=== PATIENT | male | born 1985 | race Caucasian/White ===

== ENCOUNTER 2017-04-07 21:03 | Emergency (ER) | payer SELFPAY ==
--- NOTE | 2017-04-08 02:04 | ER Document Report ---
HPI - HPI Patient complains to provider of: sore throat, cough Onset: Yesterday Onset/Duration: Gradual Quality of pain: Achy Pain Level: 3 Context: 32 yo male with sore throat, cough, congestion since yesterday evening. No fever or chills. No chest pain or sob. Associated Symptoms: None Exacerbated by: Denies Relieved by: Denies - ROS ROS below otherwise negative: Yes Systems Reviewed and Negative: Yes All other systems reviewed and negative - REPRODUCTIVE Reproductive: DENIES: : - DERM Skin Color: Normal Past Medical History - General Information source: Patient - Social History Smoking Status: Unknown if Ever Smoked Frequency of alcohol use: None Drug Abuse: None Lives with: Family Family History: Reviewed & Not Pertinent - Medical History Medical History: Negative Renal/ Medical History: Denies: Hx Peritoneal Dialysis Musculoskeltal Medical History: Denies Hx Arthritis Surgical Hx: Negative Past Surgical History: Reports: Hx Orthopedic Surgery - Immunizations Hx Diphtheria, Pertussis, Tetanus Vaccination: Yes Vertical Provider Document - CONSTITUTIONAL Agree With Documented VS: Yes Exam Limitations: No Limitations General Appearance: No Apparent Distress - INFECTION CONTROL TRAVEL OUTSIDE OF THE [place] IN LAST 30 DAYS: No - HEENT HEENT: Normocephalic, Pharyngeal Erythema - milgd. negative: Tympanic Membrane Red, Tympanic Membrane Bulging - NECK Neck: Supple. negative: Lymphadenopathy-Left, Lymphadenopathy-Right - RESPIRATORY Respiratory: Breath Sounds Normal, No Respiratory Distress O2 Sat by Pulse Oximetry: 99 - CARDIOVASCULAR Cardiovascular: Regular Rate, Regular Rhythm - GI/ABDOMEN Gastrointestinal: Abdomen Soft, Abdomen Non-Tender - MUSCULOSKELETAL/EXTREMETIES Musculoskeletal/Extremeties: MAEW, [place] - NEURO Level of Consciousness: Awake, Alert - DERM Integumentary: Warm, Dry, No Rash Course - Re-evaluation Re-evalutation: 04/08/17 02:29 rapid strept negative - Vital Signs Vital signs: Temp Pulse Resp BP Pulse Ox 98.1 F 92 18 117/64 99 04/07/17 22:10 04/07/17 22:10 04/07/17 22:10 04/07/17 22:10 04/07/17 22:10 Discharge - Discharge Clinical Impression: Viral upper respiratory infection Condition: Good Disposition: HOME, SELF-CARE Instructions: Sore Throat ([facility]), Upper Respiratory Illness ([facility]) Additional Instructions: plenty of fluids stop smoking tylenol for discomfort to er if worse
[2017-04-08 02:55] VITALS: BP 110/69
== END 2017-04-08 02:50 | disposition home or self-care (01) ==
LOC: ER 21:03
DX: J06.9 Acute upper respiratory infection, unspecified (principal); J02.9 Acute pharyngitis, unspecified; R05 Cough; R09.81 Nasal congestion
CPT/HCPCS: 87070; 87880; 99283

== ENCOUNTER 2019-07-31 15:44 | Emergency (ER) | payer OTHER ==
--- NOTE | 2019-07-31 15:52 | ER Document Report ---
ED Medical Screen (RME) - General Stated Complaint: ALTERED MENTAL STATUS Time Seen by Provider: 07/31/19 15:49 Mode of Arrival: Medic Information source: Law Enforcement, Emergency Med Personnel Notes: This 34-year-old male presents from [facility] with complaints of headache. Reports last used heroin 3 days ago. Reports history of substance abuse with heroin and meth. Has not been prescribed anything since he has been at the snf for 3 days.. Is going through withdrawals. No complaints of nausea vomiting. I have greeted and performed a rapid initial assessment of this patient. A comprehensive ED assessment and evaluation of the patient, analysis of test results and completion of the medical decision making process will be conducted by additional ED providers. Dictation of this chart was performed using voice recognition software; therefore, there may be some unintended grammatical errors. TRAVEL OUTSIDE OF THE [place] IN LAST 30 DAYS: No - Related Data Allergies/Adverse Reactions: No Known Allergies Allergy (Verified 07/31/19 15:51) Past Medical History - Past Medical History Cardiac Medical History: Denies: Hx Coronary Artery Disease, Hx Heart Attack, Hx Hypertension Pulmonary Medical History: Denies: Hx Asthma, Hx Bronchitis, Hx COPD, Hx Pneumonia Neurological Medical History: Denies: Hx Cerebrovascular Accident, Hx Seizures Endocrine Medical History: Denies: Hx Diabetes Mellitus Type 1, Hx Diabetes Mellitus Type 2 Renal/ Medical History: Denies: Hx Peritoneal Dialysis Musculoskeltal Medical History: Denies Hx Arthritis Past Surgical History: Reports: Hx Orthopedic Surgery - Immunizations Hx Diphtheria, Pertussis, Tetanus Vaccination: Yes
[2019-07-31] MEDS ORDERED: KETOROLAC TROMETHAMINE INJ/PF 30 MG/1 ML SDV IV ONE (15:59)
[2019-07-31] MEDS ORDERED: DIPHENHYDRAMINE HCL 50 MG/ML VIAL IV ONE (15:59)
[2019-07-31] MEDS ORDERED: ONDANSETRON HCL INJ/PF 4 MG/2 ML SDV IV ONE (15:59)
[2019-07-31] MEDS ORDERED: NORMAL SALINE 1000 ML 1,000 ML IV ONE (15:59)
[2019-07-31] MEDS ORDERED: PROCHLORPERAZINE EDISYLATE INJ 10 MG/2 ML VIAL IV ONE (16:17)
--- NOTE | 2019-07-31 16:20 | ER Document Report ---
ED General - General Chief Complaint: Altered Mental Status Stated Complaint: ALTERED MENTAL STATUS Time Seen by Provider: 07/31/19 15:49 Mode of Arrival: Medic TRAVEL OUTSIDE OF THE [place] IN LAST 30 DAYS: No - HPI Notes: Presents from nursing home for concern of seizure activity. He states that he awoke in the [place] was holding him and they state he was having rhythmic jerking motions. He does not have any history of seizure disorder and no known medical problems. He does have a history of meth and heroin use and his last use was on the . He states he has a slight headache denies any vision changes at this time no pain in any parts of his body. Does note makes a comment of patient was sent here for withdrawal but he has stable vitals at this time he is not tremulous and is well-appearing - Related Data Allergies/Adverse Reactions: No Known Allergies Allergy (Verified 07/31/19 15:51) Past Medical History - General Information source: Law Enforcement, Emergency Med Personnel - Social History Smoking Status: Never Smoker Chew tobacco use (# tins/day): No Frequency of alcohol use: None Drug Abuse: Heroin, Methamphetamine Family History: Reviewed & Not Pertinent Patient has suicidal ideation: No Patient has homicidal ideation: No - Past Medical History Cardiac Medical History: Denies: Hx Coronary Artery Disease, Hx Heart Attack, Hx Hypertension Pulmonary Medical History: Denies: Hx Asthma, Hx Bronchitis, Hx COPD, Hx Pneumonia Neurological Medical History: Denies: Hx Cerebrovascular Accident, Hx Seizures Endocrine Medical History: Denies: Hx Diabetes Mellitus Type 1, Hx Diabetes Mellitus Type 2 Renal/ Medical History: Denies: Hx Peritoneal Dialysis Musculoskeletal Medical History: Denies Hx Arthritis Past Surgical History: Reports: Hx Orthopedic Surgery - Immunizations Hx Diphtheria, Pertussis, Tetanus Vaccination: Yes Review of Systems - Review of Systems Constitutional: No symptoms reported EENT: No symptoms reported Cardiovascular: No symptoms reported Respiratory: No symptoms reported Gastrointestinal: No symptoms reported Genitourinary: No symptoms reported Male Genitourinary: No symptoms reported Musculoskeletal: No symptoms reported Skin: No symptoms reported Hematologic/Lymphatic: No symptoms reported Neurological/Psychological: See HPI Physical Exam - Vital signs Vitals: Resp Pulse Ox 15 100 07/31/19 16:04 07/31/19 16:04 - General General appearance: Appears well, Alert - HEENT Head: Normocephalic, Atraumatic Eyes: Normal Pupils: PERRL - Respiratory Respiratory status: No respiratory distress Chest status: Nontender Breath sounds: Normal Chest palpation: Normal - Cardiovascular Rhythm: Regular Heart sounds: Normal auscultation Murmur: No - Extremities General upper extremity: Normal inspection, Nontender, Normal color, Normal ROM, Normal temperature General lower extremity: Normal inspection, Nontender, Normal color, Normal ROM, Normal temperature, Normal weight bearing. No: Shakila's sign - Neurological Neuro grossly intact: Yes Cognition: Normal Orientation: AAOx4 [place] Coma Scale Eye Opening: Spontaneous Lm Coma Scale Verbal: Oriented [place] Coma Scale Motor: Obeys Commands [place] Coma Scale Total: 15 Speech: Normal Motor strength normal: LUE, RUE, LLE, RLE Sensory: Normal - Psychological Associated symptoms: Normal affect Course - Re-evaluation Re-evalutation: 07/31/19 18:11 Labs within normal limits are nonsignificant with no concerning findings on imaging. Patient is not postictal and is had any seizure activity in the emergency department. Will be discharged at this time. Instructed on paperwork if her to have repeat seizure activity the knee need further evaluation by neurology and consideration of antiepileptics. - Vital Signs Vital signs: Temp Pulse Resp BP Pulse Ox 98.7 F 14 118/78 100 07/31/19 16:05 07/31/19 17:01 07/31/19 17:01 07/31/19 16:05 - Laboratory Result Diagrams: 07/31/19 16:38 07/31/19 16:38 Laboratory results interpreted by me: 07/31/19 07/31/19 16:38 16:38 WBC 12.6 H RBC 6.69 H Hgb 17.7 H Hct 52.8 H MCV 79 L MCH 26.4 L Absolute Neuts (auto) 8.8 H Calcium 10.7 H Magnesium 2.4 H Total Protein 10.2 H - Diagnostic Test Radiology reviewed: Reports reviewed - EKG Interpretation by Me EKG shows normal: Sinus rhythm Rate: Normal Rhythm: NSR Discharge - Discharge Clinical Impression: Seizure-like activity Condition: Good Disposition: HOME, SELF-CARE Instructions: New Seizure ([facility]) Additional Instructions: Here to have another seizure please seek neurology evaluation consideration for antiepileptic medications.
[2019-07-31 16:54] LABS: ABSOLUTE BASOPHILS # (AUTO) 0.1 10^3/uL (0.0-0.2); ABSOLUTE LYMPHOCYTES (AUTO) 2.9 10^3/uL (0.5-4.7); ABSOLUTE MONOCYTES (AUTO) 0.8 10^3/uL (0.1-1.4); ABSOLUTE NEUT (AUTO) 8.8 10^3/uL (1.7-8.2); BASOPHILS % (AUTO) 0.5 % (0-2); EOSINOPHILS % (AUTO) 0.4 % (0-6); HEMATOCRIT 52.8 % (37.9-51.0); HEMOGLOBIN 17.7 g/dL (13.5-17.0); LYMPHOCYTES % (AUTO) 22.7 % (13-45); MEAN CORPUSCULAR HEMOGLOBIN 26.4 pg (27.0-33.4); MEAN CORPUSCULAR HGB CONC 33.4 g/dL (32.0-36.0); MEAN CORPUSCULAR VOLUME 79 fl (80-97); MONOCYTES % (AUTO) 6.6 % (3-13); PLATELET COUNT 376 10^3/uL (150-450); RED BLOOD COUNT 6.69 10^6/uL (4.35-5.55); RED CELL DISTRIBUTION WIDTH 13.8 % (11.5-14.0); SEGMENTED NEUTROPHILS % (AUTO) 69.8 % (42-78); TOTAL CELLS COUNTED % (AUTO) 100 %; WHITE BLOOD COUNT 12.6 10^3/uL (4.0-10.5)
--- NOTE | 2019-07-31 16:55 | RADIOLOGY REPORT (SQ) ---
EXAM DESCRIPTION: CHEST SINGLE VIEW COMPLETED DATE/TIME: 07/31/2019 4:36 pm REASON FOR STUDY: seizure r/o aspiration COMPARISON: Two-view chest 07/19/2011 EXAM PARAMETERS: NUMBER OF VIEWS: One view. TECHNIQUE: Single frontal radiographic view of the chest acquired. RADIATION DOSE: NA LIMITATIONS: None. FINDINGS: LUNGS AND PLEURA: No acute infiltrates. No pleural effusion or pneumothorax. MEDIASTINUM AND HILAR STRUCTURES: No masses. Contour normal. HEART AND VASCULAR STRUCTURES: Heart normal in size. Normal vasculature. BONES: No acute findings. HARDWARE: Left lateral old rib fractures OTHER: No other significant finding. IMPRESSION: NO ACUTE RADIOGRAPHIC FINDING IN THE CHEST. TECHNICAL DOCUMENTATION: JOB ID: [id number] [employer]- All Rights Reserved Reading location - IP/workstation name: [email or web address]
--- NOTE | 2019-07-31 17:09 | RADIOLOGY REPORT (SQ) ---
EXAM DESCRIPTION: CT HEAD WITHOUT COMPLETED DATE/TIME: 07/31/2019 4:57 pm REASON FOR STUDY: first time seziure COMPARISON: 2015 TECHNIQUE: Axial images acquired through the brain without intravenous contrast. Images reviewed wi th bone, brain and subdural windows. Additional sagittal and coronal reconstructions were generated. Images stored on PACS. All CT scanners at this facility use dose modulation, iterative reconstruction, and/or weight based d osing when appropriate to reduce radiation dose to as low as reasonably achievable (ALARA). [facility]: Dose Right [facility]: CareDose [facility]: Dose Right [facility]: Teradose 4D [facility]: Smart Bringrr RADIATION DOSE: CT Rad equipment meets quality standard of care and radiation dose reduction techniq ues were employed. CTDIvol: 53.2 mGy. DLP: 1017 mGy-cm. mGy. LIMITATIONS: None. FINDINGS: VENTRICLES: Normal size and contour. CEREBRUM: No masses. No hemorrhage. No midline shift. No evidence for acute infarction. Normal gra y/white matter differentiation. No areas of low density in the white matter. CEREBELLUM: No masses. No hemorrhage. No alteration of density. No evidence for acute infarction. EXTRAAXIAL SPACES: No fluid collections. No masses. ORBITS AND GLOBE: No intra- or extraconal masses. Normal contour of globe without masses. CALVARIUM: No fracture. PARANASAL SINUSES: No fluid levels. SOFT TISSUES: No mass or hematoma. OTHER: No other significant finding. IMPRESSION: No acute intracranial abnormality. EVIDENCE OF ACUTE STROKE: NO. COMMENT: Quality ID # [id number]: Final reports with documentation of one or more dose reduction techniques (e.g., Automated exposure control, adjustment of the mA and/or kV according to patient size, use of iterative reconstruction technique) TECHNICAL DOCUMENTATION: JOB ID: [id number] [email or web address]- All Rights Reserved Reading location - IP/workstation name: [email or web address]
[2019-07-31 17:23] LABS: ALKALINE PHOSPHATASE 103 U/L (38-126); ANION GAP 16 (5-19); ASPARTATE AMINO TRANSFERASE 36 U/L (17-59); BILIRUBIN,DIRECT 0.2 mg/dL (0.0-0.4); BILIRUBIN,TOTAL 0.6 mg/dL (0.2-1.3); BLOOD UREA NITROGEN 15 mg/dL (7-20); CALCIUM 10.7 mg/dL (8.4-10.2); CARBON DIOXIDE 24 mmol/L (22-30); CHLORIDE 102 mmol/L (98-107); GLUCOSE 84 mg/dL (75-110); POTASSIUM 4.2 mmol/L (3.6-5.0); TOTAL PROTEIN 10.2 g/dL (6.3-8.2)
[2019-07-31 19:23] VITALS: BP 109/69
--- NOTE | 2019-08-02 09:11 | EKG REPORT ---
SEVERITY:- BORDERLINE ECG - SINUS RHYTHM CONSIDER ANTERIOR INFARCT : Confirmed by: Paola Johnson 02-Aug-2019 09:10:38
== END 2019-07-31 19:28 | disposition home or self-care (01) ==
LOC: ER 15:44
DX: R29.818 Other symptoms and signs involving the nervous system (principal); R51 Headache; F11.10 Opioid abuse, uncomplicated; F15.10 Other stimulant abuse, uncomplicated
CPT/HCPCS: 93005; 99285; 96361; 96374; 96375; 36415; 83735; 85025; 80053; 71045; 70450; 93010; J1200; J0780; J2405; J7030

== ENCOUNTER 2020-07-03 22:51 | Emergency (ER) | payer SELFPAY ==
--- NOTE | 2020-07-03 23:42 | ER Document Report ---
ED Medical Screen (RME) - General Chief Complaint: Skin Sore(s) Stated Complaint: POSSIBLE BUG BITE RIGHT EYE AREA Time Seen by Provider: 07/03/20 23:35 Mode of Arrival: Ambulatory Information source: Patient Notes: 35-year-old male presented to ED for complaint of severe facial cellulitis that started yesterday. He cannot open his right eye. He is alert oriented respirations regular nonlabored speaking in full sentences. States the pain is a level 4 in his face. He is alert oriented respirations regular nonlabored speaking in full sentences. We will get blood blood cultures IV contrasted CT of the face and have him seen by another provider. I have greeted and performed a rapid initial assessment of this patient. A comprehensive ED assessment and evaluation of the patient, analysis of test results and completion of medical decision making process will be conducted by an additional ED providers. TRAVEL OUTSIDE OF THE [place] IN LAST 30 DAYS: No - Related Data Allergies/Adverse Reactions: No Known Allergies Allergy (Verified 07/31/19 15:51) Past Medical History - Past Medical History Cardiac Medical History: Denies: Hx Coronary Artery Disease, Hx Heart Attack, Hx Hypertension Pulmonary Medical History: Denies: Hx Asthma, Hx Bronchitis, Hx COPD, Hx Pneumonia Neurological Medical History: Denies: Hx Cerebrovascular Accident, Hx Seizures Endocrine Medical History: Denies: Hx Diabetes Mellitus Type 1, Hx Diabetes Mellitus Type 2 Renal/ Medical History: Denies: Hx Peritoneal Dialysis Musculoskeltal Medical History: Denies Hx Arthritis Past Surgical History: Reports: Hx Orthopedic Surgery - Immunizations Hx Diphtheria, Pertussis, Tetanus Vaccination: Yes Physical Exam - Vital signs Vitals: Temp Pulse Resp BP Pulse Ox 98.1 F 84 16 137/68 H 98 07/03/20 22:56 07/03/20 22:56 07/03/20 22:56 07/03/20 22:56 07/03/20 22:56 Course - Vital Signs Vital signs: Temp Pulse Resp BP Pulse Ox 98.1 F 84 16 137/68 H 98 07/03/20 22:56 07/03/20 22:56 07/03/20 22:56 07/03/20 22:56 07/03/20 22:56
[2020-07-04 00:12] LABS: ABSOLUTE BASOPHILS # (AUTO) 0.1 10^3/uL (0.0-0.2); ABSOLUTE EOSINOPHILS # (AUTO) 0.2 10^3/uL (0.0-0.6); ABSOLUTE MONOCYTES (AUTO) 0.8 10^3/uL (0.1-1.4); ABSOLUTE NEUT (AUTO) 7.2 10^3/uL (1.7-8.2); BASOPHILS % (AUTO) 0.5 % (0-2); EOSINOPHILS % (AUTO) 2.2 % (0-6); HEMOGLOBIN 13.6 g/dL (13.5-17.0); LYMPHOCYTES % (AUTO) 19.3 % (13-45); MEAN CORPUSCULAR HEMOGLOBIN 27.2 pg (27.0-33.4); MEAN CORPUSCULAR HGB CONC 33.9 g/dL (32.0-36.0); MEAN CORPUSCULAR VOLUME 80 fl (80-97); MONOCYTES % (AUTO) 7.7 % (3-13); PLATELET COUNT 251 10^3/uL (150-450); RED BLOOD COUNT 4.99 10^6/uL (4.35-5.55); RED CELL DISTRIBUTION WIDTH 13.5 % (11.5-14.0); SEGMENTED NEUTROPHILS % (AUTO) 70.3 % (42-78); TOTAL CELLS COUNTED % (AUTO) 100 %; WHITE BLOOD COUNT 10.2 10^3/uL (4.0-10.5)
[2020-07-04 01:28] LABS: ALBUMIN 3.7 g/dL (3.5-5.0); ALKALINE PHOSPHATASE 78 U/L (38-126); ANION GAP 10 (5-19); ASPARTATE AMINO TRANSFERASE 20 U/L (17-59); BILIRUBIN,DIRECT 0.2 mg/dL (0.0-0.4); BILIRUBIN,TOTAL 0.4 mg/dL (0.2-1.3); BLOOD UREA NITROGEN 18 mg/dL (7-20); CALCIUM 9.1 mg/dL (8.4-10.2); CARBON DIOXIDE 27 mmol/L (22-30); CHLORIDE 102 mmol/L (98-107); GLUCOSE 108 mg/dL (75-110); POTASSIUM 4.2 mmol/L (3.6-5.0); TOTAL PROTEIN 6.8 g/dL (6.3-8.2)
[2020-07-04] MEDS ORDERED: CLINDAMYCIN 900 MG/D5W RTU 900 MG/50 ML RTUPB IV ONE (02:13)
[2020-07-04] MEDS ORDERED: DEXAMETHASONE SOD PHOSPHATE INJ 4 MG/1 ML VIAL IV ONE (02:14)
--- NOTE | 2020-07-04 02:17 | ER Document Report ---
ED Skin Rash/Insect Bite/Abscs - General Chief Complaint: Skin Problem Stated Complaint: POSSIBLE BUG BITE RIGHT EYE AREA Time Seen by Provider: 07/03/20 23:35 Mode of Arrival: Ambulatory Information source: Patient Notes: Patient is a 35-year-old male comes emergency room complaining of infection to his bridge of the nose spreading down into the right eye upper and lower lid area. And has some extension into the left lower lid area. Patient states it was approximately 2 days ago when he noticed in the middle of the forehead just above the bridge of the nose that he had been bitten or had a pimple in the area. He attempted to squeeze it and by the time he woke up yesterday morning t he area had spread and the eyelids and upper and lower puff down closing his eyes so he could not see through it. He is got moderate amount of erythema going across the forehead and into the left lower lid. TRAVEL OUTSIDE OF THE [place] IN LAST 30 DAYS: No - HPI Patient complains to provider of: Tender/swollen area, Insect bite Onset: Other Onset/Duration: Gradual, Persistent, Worse Quality of pain: Achy, Pressure, Throbbing Severity: Moderate Pain Level: 3 Skin Character: Drainage, Erythema, Swelling, Tenderness, Thickening Skin Temperature: Warm Quality of rash: Painful Identify cause: No Other exposure: Other - Insect bite Relieved by: Denies Similar symptoms previously: No Recently seen / treated by doctor: No - Related Data Allergies/Adverse Reactions: No Known Allergies Allergy (Verified 07/04/20 00:17) Past Medical History - General Information source: Patient - Social History Smoking Status: Current Some Day Smoker Cigarette use (# per day): Yes Chew tobacco use (# tins/day): No Smoking Education Provided: Yes Frequency of alcohol use: None Drug Abuse: None Lives with: Family Family History: Reviewed & Not Pertinent Patient has homicidal ideation: No - Past Medical History Cardiac Medical History: Denies: Hx Coronary Artery Disease, Hx Heart Attack, Hx Hypertension Pulmonary Medical History: Denies: Hx Asthma, Hx Bronchitis, Hx COPD, Hx Pneumonia Neurological Medical History: Denies: Hx Cerebrovascular Accident, Hx Seizures Endocrine Medical History: Denies: Hx Diabetes Mellitus Type 1, Hx Diabetes Mellitus Type 2 Renal/ Medical History: Denies: Hx Peritoneal Dialysis Musculoskeletal Medical History: Denies Hx Arthritis Past Surgical History: Reports: Hx Orthopedic Surgery - Immunizations Hx Diphtheria, Pertussis, Tetanus Vaccination: Yes Review of Systems - Review of Systems Constitutional: No symptoms reported EENT: No symptoms reported Cardiovascular: No symptoms reported Respiratory: No symptoms reported Gastrointestinal: No symptoms reported Genitourinary: No symptoms reported Male Genitourinary: No symptoms reported Musculoskeletal: No symptoms reported Skin: See HPI, Lesions Hematologic/Lymphatic: No symptoms reported Neurological/Psychological: No symptoms reported -: Yes All other systems reviewed and negative Physical Exam - Vital signs Vitals: Temp Pulse Resp BP Pulse Ox 98.1 F 84 16 137/68 H 98 07/03/20 22:56 07/03/20 22:56 07/03/20 22:56 07/03/20 22:56 07/03/20 22:56 Interpretation: Hypertensive Notes: PHYSICAL EXAMINATION: GENERAL: Patient is well-nourished well-developed 35-year-old male no acute distress on physical exam today. Patient does appear somewhat uncomfortable. HEAD: , normocephalic. Examination patient her concern is his frontal forehead primarily at the superior portion of the bridge of the nose extending down onto the midportion of the bridge of the nose into the lower eye and upper eyelid. The eye itself is not infected. When prying open the lower and upper lids from its puffiness patient is full visual acuity. He also has good EOMs. No sign of any damage to the orbits themselves. Further evaluation of the eyelid shown to be puffy moderate erythema there is no fluctuance noted in the area of the eyelids. There is mild fluctuance where the lesion is located at the superior portion of the bridge of the nose slightly off to the right side there is a 1 cm x 1cm lesion that is tender to palpate is oozing slightly when pressure is applied to the sides just a minimal amount of a clearish fluid. There is some extension of the erythema down into the left lower lid. Again there is no involvement of the eye itself. EYES: Pupils equal round and reactive to light, extraocular movements intact, sclera anicteric, conjunctiva are normal. ENT: Nares patent, oropharynx clear without exudates. Moist mucous membranes. NECK: Normal range of motion, supple without lymphadenopathy LUNGS: Breath sounds clear to auscultation bilaterally and equal. No wheezes rales or rhonchi. HEART: Regular rate and rhythm without murmurs NEUROLOGICAL: Normal speech, normal gait. Normal sensory, motor exams PSYCH: Normal mood, normal affect. SKIN: See head above for full details. The entire area covers approximately 10 cm across the upper lids down to the lateral canthus of the eye and across the bridge of the nose. This is approximately 10 to 14 cm across and approximately 6 cm total wide. Course - Re-evaluation Re-evalutation: 07/04/20 05:58 Patient received clindamycin 900 mg IV while here along with 8 of Decadron his swelling has subsided substantially his vision is slightly better and opening his eyes improved. The erythema seems to decrease moderately to. He does state he is feeling better. At this time I will send him home on clindamycin and Keflex. 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 I have instructed him to return to ER should he have any difficulty with managing his fevers increased swelling or any concerns. 07/04/20 05:59 There was no area of incision and drainage to be had on this cellulitis presentation. The draining portion of it is just a very minimal superficial type of a collection. - Vital Signs Vital signs: Temp Pulse Resp BP Pulse Ox 98.1 F 84 16 137/68 H 98 07/03/20 23:59 07/03/20 22:56 07/03/20 22:56 07/03/20 22:56 07/03/20 22:56 - Laboratory Result Diagrams: 07/03/20 23:59 07/03/20 23:59 Discharge - Discharge Clinical Impression: Facial cellulitis Insect bite Qualifiers: Encounter type: initial encounter Site of insect bite: head Site of insect bite of head: nose Qualified Code(s): S00.36XA - Insect bite (nonvenomous) of nose, initial encounter; W57.XXXA - Bitten or stung by nonvenomous insect and other nonvenomous arthropods, initial encounter Condition: Stable Disposition: HOME, SELF-CARE Instructions: Cellulitis ([facility]) Additional Instructions: Home and use warm moist compresses as we discussed. Also writing you for an antibiotic cream can apply 3 times a day to the area. Take all antibiotics until finished. You can take ibuprofen and Tylenol for aches and pains and fevers. As we discussed the warm moist compresses or is warm from the sink and you can stand it without putting you in a microwave. Should you have any concerns or problems you can return to ER for reevaluation. Prescriptions: Mupirocin [Bactroban 2% Ointment 22 gm] 1 applic TP TID #1 tube Clindamycin HCl 300 mg PO QID #40 capsule Cephalexin Monohydrate [Keflex 500 mg Capsule] 500 mg PO Q6H 5 Days #28 capsule Forms: Elevated Blood Pressure, Return to Work Referrals: [facility] [Provider Group] - Follow up as needed
--- NOTE | 2020-07-04 03:16 | RADIOLOGY REPORT (SQ) ---
CT OF THE FACE: 07/04/2020 2:13 AM CDT TECHNIQUE: Helically acquired images were obtained of the face. Post contrast imaging was obtained through the face. Multiplanar reformations were reviewed. A radiation dose optimization technique was used for this scan. This exam was performed according to our departmental dose-optimization program, which includes automated exposure control, adjustment of the mA and/or KV according to the patient's size and/or use of iterative reconstruction technique. HISTORY: 35-year-old patient with facial pain. COMPARISON: None available FINDINGS: There is some soft tissue stranding and enhancement seen within the subcutaneous soft tissues around the right palpebral fissure. No obvious intraconal extension is seen. No gross rim-enhancing fluid collection is seen at this area. There is reticulation within the subcutaneous soft tissues suggesting cellulitis or edema. There is mild periorbital soft tissue swelling noted on the right side. No obvious mass is seen. The visualized carotid, vertebral, and jugular vasculature appear patent. No acute, displaced facial bone fracture is seen. The mandible is intact. The visualized portions of the cervical spine appear unremarkable. The visualized intracranial structures are also unremarkable. The orbits are unremarkable. No gross radiopaque foreign body is readily apparent. The visualized mastoid air cells appear clear. There is mild mucoperiosteal thickening of the ethmoid and sphenoid sinuses. IMPRESSION: There is abnormal soft tissue swelling and enhancement within the subcutaneous soft tissues around the right palpebral fissure. No discrete rim-enhancing fluid collection is seen. No obvious intraconal extension is seen.
[2020-07-04 06:44] VITALS: BP 106/57
== END 2020-07-04 06:41 | disposition home or self-care (01) ==
LOC: ER 22:51
DX: L02.01 Cutaneous abscess of face (principal); S00.36XA Insect bite (nonvenomous) of nose, initial encounter; R22.0 Localized swelling, mass and lump, head; W57.XXXA Bitten or stung by nonvenomous insect and other nonvenomous arthropods, initial encounter; F17.210 Nicotine dependence, cigarettes, uncomplicated
CPT/HCPCS: 99285; 96375; 96365; 36415; 87040; 85025; 80053; 70487; J1100; J3490